=== PATIENT | male | born 1945 | race Caucasian/White ===

== ENCOUNTER 2020-08-07 09:00 | Observation (INO) | payer MEDICARE ==
[2020-08-07] VITALS (8 sets, daily range): BP systolic 123–154; BP diastolic 52–66
[~2020-08-07] VITALS: Ht 190.5 cm; Wt 107.8 kg
--- NOTE | 2020-08-07 10:13 | RAD ---
Examination: 3 views of the right knee HISTORY: History of right knee pain, fall COMPARISON: None available Findings/ impression: The alignment of the knee joint grossly appears unremarkable. Small knee joint effusion. There is a 2 cm calcific density identified in the suprapatellar knee joint probably loose body. Faint questionab le hypodensity identified in the distal diaphysis of the femur. Consider follow-up CT or MRI for furt her evaluation. Electronically signed by: Tyree Barnett MD (08/07/2020 10:11 AM) [id number]
--- NOTE | 2020-08-07 11:21 | RAD ---
INDICATION: Reason: knee injury s/p fall today / Spl. Instructions: / History: . COMPARISON: Plain film from earlier same day TECHNIQUE: Axial CT images obtained through the right knee. One or more of the following individualized dose reduction techniques were utilized for this examinat ion: 1. Automated exposure control; 2. Adjustment of the mA and/or kV according to patient size; 3 . Use of iterative reconstruction technique. FINDINGS: Superior to the patella there are multiple ossific fragments identified. There is also some apparent erosions at the patella. Patchy osseous demineralization. Degenerative changes of the knee with osteophyte formation. There is mild indentation of the lateral femoral condyle anteriorly with mild subchondral lucency. No evidence of dislocation. Small joint effusion. Prepatellar soft tissue swelling. There are some laxity of the patellar tendon and quadriceps tendon. There is some relative lucency within the cortex of the distal femur with a nonspecific appearance. T here is a similar appearance at the tibia and fibula. Edema to the soft tissues adjacent to the knee with some of this appearing high density which could be secondary to component with blood within. The re is also some high density at the patient's joint effusion. IMPRESSION: * No evidence of dislocation. * There is a indentation identified at the lateral femoral condyle with subchondral lucency. Would c orrelate with point tenderness at this site since this could be from a small impaction fracture of un known age. There is adjacent edema and high density material in the subcutaneous soft tissues which c ould be secondary to a small amount of subcutaneous blood near this site. Patient also has a small amanda int effusion with a portion appearing high density which can be seen with a small hemorrhagic compone nt. * There is some ossific fragment seen superior to the patella which may be from loose bodies. Anothe r possible cause would include fragments from prior avulsion injury at the patellar tendon. * Laxity of the patellar and quadriceps tendons. Limited assessment of the tendons on CT and would c orrelate with function of the patellar and quadriceps tendon to ensure that this is physiologic rathe r than from injury. * Degenerative changes. Electronically signed by: Eric Sage MD (08/07/2020 11:19 AM) [id number]
--- NOTE | 2020-08-07 12:03 | ED.ADGEN ---
Past Medical History Past Medical History: Hypertension, Other Additional Past Medical Histor: PREDM Past Surgical History: Other Additional Past Surgical Histo: HERNIA REPAIRX2, LUMBAR SX Smoking Status: Never Smoker Alcohol Use: Rarely General Adult EDM: Chief Complaint: MECHANICAL FALL HPI: HPI: Patient is a 74 year old male coming in for right knee pain after a fall prior to arrival. Patient states he was walking his dogs when he tripped and says his knee twisted. Is a small abrasion to his right hand but denies any other injuries. Last tetanus greater than 10 years ago denies any blood thinner use. Otherwise has been well Review of Systems: Review of Systems: All other systems within normal limits except for as noted in the HPI Current Medications: Current Medications Medications (Trade) Dose Ordered Sig/Dave Start Time Stop Time Status Last Admin Dose Admin Diphtheria/ Tetanus/Acell Pertussis (ADACEL TDap SYRINGE) 0.5 ml ONCE ONCE 08/07/20 12:15 08/07/20 12:16 DC 08/07/20 12:18 0.5 ML Fentanyl Citrate (Fentanyl 2ml Vial) 50 mcg PRN Q5MIN PRN 08/07/20 13:30 08/08/20 13:29 Hydromorphone HCl (Dilaudid) 0.5 mg PRN Q10MIN PRN 08/07/20 13:30 08/08/20 13:29 Lidocaine HCl (Lidocaine Pf 2% Vial) 5 ml STK-MED ONCE 08/07/20 13:16 08/07/20 13:16 DC Morphine Sulfate (Morphine Sulfate) 1 mg PRN Q10MIN PRN 08/07/20 13:30 08/08/20 13:29 Ondansetron HCl (Zofran) 4 mg PRN Q8HRS PRN 08/07/20 12:45 08/08/20 12:44 Prochlorperazine Edisylate (Compazine) 5 mg PACU PRN PRN 08/07/20 13:30 08/08/20 13:29 Propofol (Diprivan) 200 mg STK-MED ONCE 08/07/20 13:16 08/07/20 13:16 DC Ringer's Solution 1,000 ml @ 30 mls/hr Q24H 08/07/20 13:30 08/08/20 01:29 Sodium Chloride 1,000 ml @ 75 mls/hr [id number] 08/07/20 12:45 08/08/20 12:44 Allergies: Allergies: Allergies Coded Allergies Type Severity Reaction Last Updated Verified No Known Drug Allergies 08/07/20 No Physical Exam: PE: Constitutional: Well developed, well nourished, no acute distress, non-toxic appearance. [] HENT: Normocephalic, atraumatic, bilateral external ears normal, nose normal. [] Eyes: PERRLA, conjunctiva normal, no discharge. [] Neck: No rigidity, supple, no stridor. [] Cardiovascular: Regular rate and rhythm, brisk cap refill [] Lungs & Thorax: Non labored symmetric respirations, no tachypnea or respiratory distress [] Abdomen: Soft, nondistended. Skin: Warm, dry, no erythema, no rash. [] Back: Unremarkable Extremities: No deformities, range of motion grossly intact, no lower extremity edema [] right knee, patella displaced inferiorly, moderate joint effusion Neurologic: Alert and oriented X 3, no focal deficits noted. [] Psychologic: Affect normal, judgement normal, mood normal. [] Current Patient Data: Labs: Laboratory Tests Test 08/07/20 12:39 White Blood Count 8.9 x10^3/uL (4.0-11.0) Red Blood Count 4.59 x10^6/uL (4.30-5.70) Hemoglobin 14.4 g/dL (13.0-17.5) Hematocrit 42.1 % (39.0-53.0) Mean Corpuscular Volume 92 fL (79-100) Mean Corpuscular Hemoglobin 31 pg (25-35) Mean Corpuscular Hemoglobin Concent 34 g/dL (31-37) Red Cell Distribution Width 13.2 % (11.5-14.5) Platelet Count 166 x10^3/uL (140-400) Neutrophils (%) (Auto) 80 % (31-73) H Lymphocytes (%) (Auto) 14 % (24-48) L Monocytes (%) (Auto) 6 % (0-9) Eosinophils (%) (Auto) 0 % (0-3) Basophils (%) (Auto) 0 % (0-3) Neutrophils # (Auto) 7.2 x10^3/uL (1.8-7.7) Lymphocytes # (Auto) 1.2 x10^3/uL (1.0-4.8) Monocytes # (Auto) 0.5 x10^3/uL (0.0-1.1) Eosinophils # (Auto) 0.0 x10^3/uL (0.0-0.7) Basophils # (Auto) 0.0 x10^3/uL (0.0-0.2) Sodium Level 140 mmol/L (136-145) Potassium Level 4.3 mmol/L (3.5-5.1) Chloride Level 104 mmol/L (98-107) Carbon Dioxide Level 26 mmol/L (21-32) Anion Gap 10 (6-14) Blood Urea Nitrogen 22 mg/dL (8-26) Creatinine 0.9 mg/dL (0.7-1.3) Estimated GFR (Cockcroft-Gault) 82.0 BUN/Creatinine Ratio 24 (6-20) H Glucose Level 157 mg/dL (70-99) H Calcium Level 8.5 mg/dL (8.5-10.1) Total Bilirubin 0.6 mg/dL (0.2-1.0) Aspartate Amino Transferase (AST) 18 U/L (15-37) Alanine Aminotransferase (ALT) 36 U/L (16-63) Alkaline Phosphatase 61 U/L (46-116) Total Protein 6.9 g/dL (6.4-8.2) Albumin 3.9 g/dL (3.4-5.0) Albumin/Globulin Ratio 1.3 (1.0-1.7) SARS-CoV-2 Antigen (Rapid) Negative (NEGATIVE) Laboratory Tests 08/07/20 12:39 Laboratory Tests 08/07/20 12:39 Vital Signs: Vital Signs Date Time Temp Pulse Resp B/P (MAP) Pulse Ox O2 Delivery O2 Flow Rate FiO2 08/07/20 09:39 97.2 66 18 147/75 (99) 94 Room Air 97.2 EKG: EKG: [Normal sinus rhythm, heart rate 60 bpm, normal axis, no ST elevation or depression, no ectopy] Heart Score: Risk Factors: Risk Factors: DM, Current or recent (<one month) smoker, HTN, HLP, family history of CAD, obesity. Risk Scores: Score 0 - 3: 2.5% MACE over next 6 weeks - Discharge Home Score 4 - 6: 20.3% MACE over next 6 weeks - Admit for Clinical Observation Score 7 - 10: 72.7% MACE over next 6 weeks - Early Invasive Strategies Radiology/Procedures: Radiology/Procedures: INDICATION: Reason: knee injury s/p fall today / Spl. Instructions: / History: . COMPARISON: Plain film from earlier same day TECHNIQUE: Axial CT images obtained through the right knee. One or more of the following individualized dose reduction techniques were utilized for this examination: 1. Automated exposure control; 2. Adjustment of the mA and/or kV according to patient size; 3. Use of iterative reconstruction technique. FINDINGS: Superior to the patella there are multiple ossific fragments identified. There is also some apparent erosions at the patella. Patchy osseous demineralization. Degenerative changes of the knee with osteophyte formation. There is mild indentation of the lateral femoral condyle anteriorly with mild subchondral lucency. No evidence of dislocation. Small joint effusion. Prepatellar soft tissue swelling. There are some laxity of the patellar tendon and quadriceps tendon. There is some relative lucency within the cortex of the distal femur with a nonspecific appearance. There is a similar appearance at the tibia and fibula. Edema to the soft tissues adjacent to the knee with some of this appearing high density which could be secondary to component with blood within. There is also some high density at the patient's joint effusion. IMPRESSION: * No evidence of dislocation. * There is a indentation identified at the lateral femoral condyle with subchon dral lucency. Would correlate with point tenderness at this site since this could be from a small impaction fracture of unknown age. There is adjacent edema and high density material in the subcutaneous soft tissues which could be secondary to a small amount of subcutaneous blood near this site. Patient also has a small joint effusion with a portion appearing high density which can be seen with a small hemorrhagic component. * There is some ossific fragment seen superior to the patella which may be from loose bodies. Another possible cause would include fragments from prior avulsion injury at the patellar tendon. * Laxity of the patellar and quadriceps tendons. Limited assessment of the tendons on CT and would correlate with function of the patellar and quadriceps tendon to ensure that this is physiologic rather than from injury. * Degenerative changes. Examination: 3 views of the right knee HISTORY: History of right knee pain, fall COMPARISON: None available Findings/ impression: The alignment of the knee joint grossly appears unremarkable. Small knee joint effusion. There is a 2 cm calcific density identified in the suprapatellar knee joint probably loose body. Faint questionable hypodensity identified in the distal diaphysis of the femur. Consider follow-up CT or MRI for further evaluation. [] Course & Med Decision Making: Course & Med Decision Making Discussed with Dr. Carpio can either have a knee immobilizer and follow-up in clinic or contact the OR today for surgical repair. Patient agreed to or today, admitted to hospitalist, stat Covid ordered for preop clearance. Tetanus updated [] Dragon Disclaimer: Dragon Disclaimer: This electronic medical record was generated, in whole or in part, using a voice recognition dictation system. Departure Departure Impression: Primary Impression: Fall Additional Impressions: Abrasion of right hand Rupture of right quadriceps tendon Disposition: 09 ADMITTED INPT THIS HOSP Admitting Physician: HUGH Condition: STABLE Referrals: SAIGE SEPULVEDA MD (PCP) Problem Qualifiers RADHA PRYOR MD Aug 07, 2020 12:03
[2020-08-07] MEDS ORDERED: DIPH,PERTUSS(ACELL),TET VAC/PF 0.5 ML SYRINGE. VAX IM ONE (12:15)
[2020-08-07] MEDS ORDERED: MORPHINE SULFATE 4 MG/ML VIAL. IV PRN (12:45)
[2020-08-07] MEDS: IV NORMAL SALINE 1000ML BAG 1,000 ML IV SCH ×2 (12:45→19:47)
[2020-08-07] MEDS ORDERED: ONDANSETRON PF 4 MG/2 ML VIAL. IV PRN (12:45)
[2020-08-07 12:56] LABS: BASO % 0 % (0-3); EOS % 0 % (0-3); HEMATOCRIT 42.1 % (39.0-53.0); HEMOGLOBIN 14.4 g/dL (13.0-17.5); LYMPH # 1.2 x10^3/uL (1.0-4.8); LYMPH % 14 % (24-48); MEAN CORPUSCULAR HEMOGLOBIN 31 pg (25-35); MEAN CORPUSCULAR HGB CONC 34 g/dL (31-37); MEAN CORPUSCULAR VOLUME 92 fL (79-100); MONO # 0.5 x10^3/uL (0.0-1.1); MONO % 6 % (0-9); NEUT # 7.2 x10^3/uL (1.8-7.7); NEUT % 80 % (31-73); PLATELET COUNT 166 x10^3/uL (140-400); RED BLOOD COUNT 4.59 x10^6/uL (4.30-5.70); RED CELL DISTRIBUTION WIDTH 13.2 % (11.5-14.5); WHITE BLOOD COUNT 8.9 x10^3/uL (4.0-11.0)
[2020-08-07 13:07] LABS: CALCIUM 8.5 mg/dL (8.5-10.1); CREATININE 0.9 mg/dL (0.7-1.3); POTASSIUM 4.3 mmol/L (3.5-5.1)
[2020-08-07 13:13] LABS: ALBUMIN 3.9 g/dL (3.4-5.0); ALBUMIN/GLOBULIN RATIO 1.3 (1.0-1.7); TOTAL BILIRUBIN 0.6 mg/dL (0.2-1.0); TOTAL PROTEIN 6.9 g/dL (6.4-8.2)
[2020-08-07] MEDS ORDERED: LIDOCAINE 2% PF 5 ML VIAL. ONE (13:16)
[2020-08-07] MEDS ORDERED: PROPOFOL 10 MG/ML (20ML) VIAL. IV ONE (13:16)
[2020-08-07] MEDS ORDERED: fentaNYL PF VIAL 100 MCG/2 ML VIAL ONE ×2 (13:16→15:59)
[2020-08-07] MEDS ORDERED: IV RINGERS,LACTATED 1000ML 1,000 ML IV SCH (13:30)
[2020-08-07] MEDS ORDERED: PROCHLORPERAZINE 10 MG/2 ML VIAL. IVP PRN (13:30)
[2020-08-07] MEDS ORDERED: fentaNYL PF VIAL 100 MCG/2 ML VIAL IVP PRN ×2 (13:30)
[2020-08-07] MEDS ORDERED: DEXAMETHASONE SOD PHOS 4 MG/ML VIAL ONE (14:51)
[2020-08-07] MEDS ORDERED: ONDANSETRON PF 4 MG/2 ML VIAL. ONE (14:51)
[2020-08-07] MEDS ORDERED: ceFAZolin SODIUM IV Push 1 GM VIAL. IVP ONE (15:15)
[2020-08-07] MEDS ORDERED: SEVOFLURANE 61 TO 120 MINUTES. IH ONE (15:16)
[2020-08-07] MEDS: fentaNYL PF VIAL 100 MCG/2 ML VIAL IV PRN ×2 (16:01→16:06)
[2020-08-07] MEDS ORDERED: MORPHINE SULFATE 2 MG/ML VIAL. ONE (16:07)
[2020-08-07] MEDS: MORPHINE SULFATE 2 MG/ML VIAL. IVP PRN ×2 (16:09→16:19)
--- NOTE | 2020-08-07 16:23 | PDOC4 ---
Operative Note Operative Note Date of surgery: 08/07/2020 Preoperative diagnosis: Right quadriceps tendon rupture Postoperative diagnosis: Same Operative procedure: Right quadriceps tendon repair Surgeon: Shirin Assist:Claudio dozier Anesthesia: General Estimated blood loss: 50 cc, mostly hematoma Complications: None Operative indications: Please see my dictated orthopedic emergency department consultation for detailed operative indications Operative text: Patient was identified procedure verified patient placed in the supine position on the operating table. After adequate amounts of general anesthesia were administered the right lower extremity was prepped and draped in standard sterile fashion with a thigh tourniquet. After timeout was performed patient procedure identified and verified the right lower extremity was exsanguinated by Esmarch bandage tourniquet inflated to 250 mmHg a midline incision was made and the quadriceps rupture diagnosis was confirmed superior pole of the patella was debrided back to bleeding bony tissue to allow satisfactory repair and the quadriceps tendon was trimmed back to stable healthy tissue. A total of 3 max braid sutures and all were whipstitched into the quadriceps distally using grasping suture and sutures were placed through a total of 3 longitudinal drill holes in the patella and the quadriceps was reapposed by tying the sutures distally as they were fished underneath the tendon and tied over bone to avoid any tissue compromise. Excellent apposition was noted of the quadriceps tendon to the superior pole of patella reinforcing #1 Vicryl sutures were then placed to reapposed the superficial tissue and retinaculum. Thorough irrigation carried out normal saline solution subcutaneous closure with buried Vicryl sutures skin closure with cherise sterile soft dressings were applied followed by a hinged knee brace locked in extension. Toes were noted to be warm pink following deflation of tourniquet patient was returned to recovery room in stable condition having tolerated procedure well BECKY SHELL MD Aug 07, 2020 16:23
[2020-08-07] MEDS ORDERED: HYDROmorphone 2 MG/ML VIAL ONE (16:32)
[2020-08-07] MEDS: HYDROmorphone 2 MG/ML VIAL IVP PRN ×4 (16:34→17:05)
[2020-08-07] MEDS ORDERED: hydrALAZINE 20 MG/ML VIAL. IVP ONE (16:45)
[2020-08-07] MEDS ORDERED: GLUC-11 PO (17:51)
[2020-08-07] MEDS ORDERED: LISI-130 PO (17:51)
[2020-08-07] MEDS ORDERED: SULF15DR5 EACHEYE (17:51)
[2020-08-07] MEDS ORDERED: METF500T16 PO (17:51)
[2020-08-07] MEDS ORDERED: FAMO20TA5 PO (17:51)
[2020-08-07] MEDS ORDERED: ATOR10TA60 PO (17:51)
[2020-08-07] MEDS ORDERED: ASPI-630 PO (17:51)
--- NOTE | 2020-08-07 19:25 | CONS ---
DATE OF CONSULTATION: 08/07/2020 REQUESTING PHYSICIAN: Angie Paris MD REASON FOR CONSULTATION: Right knee injury. HISTORY OF PRESENT ILLNESS: The patient is a 74-year-old male, otherwise healthy and independently ambulatory, who was walking his dogs and he tripped and twisted his knee while falling. He had immediate onset of deformity above his kneecap and fell on his right hand, but really has no pain with that aside from just abrasion. PAST MEDICAL HISTORY: Significant for hypertension. PAST SURGICAL HISTORY: Two hernia repairs and lumbar surgery. SOCIAL HISTORY: , accompanied by his . Denies smoking or drug use. Occasional alcohol use. ALLERGIES: He has no known drug allergies. MEDICATIONS: List is reviewed. REVIEW OF SYSTEMS: Denies any loss of consciousness. No head injury, visual changes, headache, focal weakness, numbness or tingling. No chest pain, shortness of breath, recent febrile illness, otherwise negative review of systems. PHYSICAL EXAMINATION: He has an obvious defect at the quadriceps tendon insertion and is unable to extend his right knee. Ligaments are otherwise stable. Skin is overlying intact. He has normal examination of the contralateral left knee, bilateral hips and ankles with intact motor function, distal pulses, sensation, reflexes, skin in both lower extremities throughout. IMAGING: X-rays show some mild degenerative changes at the knee and some calcification in the distal quadriceps insertion area and obvious disruption of the quadriceps at the superior pole of the patella. IMPRESSION: Quadriceps tendon rupture. TREATMENT PLAN: I had gone over with him the typical operative repair for this injury as the quadriceps is and unlikely to heal satisfactorily with nonoperative treatment as his extensors is compromised. I had gone over with him the general recovery process and the rationale for protection, the possibility of infection, nonhealing, nerve or blood vessel damage, medical or other anesthetic complications among others. All his questions were answered. He wishes to proceed with surgical evaluation and treatment, which will occur today as he has been n.p.o. since approximately 5 a.m. BECKY SHELL MD DR: BARBARA/thomas JOB#: [id number] / [id number]
--- NOTE | 2020-08-07 19:39 | EKG ---
[facility] [address] [place] [address] Test Date: 2020-08-07 Test Time: 13:35:03 Pat Name: LIONEL IBARRA Department: Room: Gender: Machine Sprayer: : [id number] Requested By: RADHA PRYOR Order Number: [id number] Reading MD: Measurements Intervals [place] Rate: 62 P: VT: QRS: 44 QRSD: 92 T: 27 QT: 402 QTc: 410 Interpretive Statements ATRIAL FLUTTER ABNORMAL ECG RI6.02 No previous ECG available for comparison
--- NOTE | 2020-08-07 20:54 | PDOC1 ---
History and Physical Date of Admission Date of Admission DATE: 08/07/20 TIME: 20:49 Source Source: Chart review, Patient History of Present Illness History of Present Illness Mr. Josue, is a 74 year old male admit for acute pain to his right knee after a fall. He was walkign his dogs in the neighborhood and slipped on the ice. He has slipped before, but this time, he twisted and had sudden, severe pain. He is retired and [place] on [address] [place] . His partner for the past 39 years is Jennifer Queen MD. Past Medical History Cardiovascular: HTN, Hyperlipidemia Pulmonary: No pertinent hx GI: No pertinent hx Musculoskeletal: low back pain Rheumatologic: No pertinent hx Infectious disease: No pertinent hx Endocrine: Diabetes Family History Family History: No Significant Social History Smoke: No ALCOHOL: occassional Current Problem List Problem List Problems Medical Problems: (1) Abrasion of right hand Status: Acute (2) Fall Status: Acute (3) Rupture of right quadriceps tendon Status: Acute Current Medications Current Medications Current Medications Diphtheria/ Tetanus/Acell Pertussis (ADACEL TDap SYRINGE) 0.5 ml ONCE ONCE VAX IM Last administered on 08/07/20at 12:18; Start 08/07/20 at 12:15; Stop 08/07/20 at 12:16; Status DC Ondansetron HCl (Zofran) 4 mg PRN Q8HRS PRN IV NAUSEA/VOMITING; Start 08/07/20 at 12:45; Stop 08/08/20 at 12:44 Morphine Sulfate (Morphine Sulfate) 4 mg PRN Q2HR PRN IV PAIN; Start 08/07/20 at 12:45; Stop 08/08/20 at 12:44 Fentanyl Citrate (Fentanyl 2ml Vial) 50 mcg PRN Q1HR PRN IV PAIN Last adminis tered on 08/07/20at 16:06; Start 08/07/20 at 12:45; Stop 08/08/20 at 12:44 Sodium Chloride 1,000 ml @ 75 mls/hr [id number] IV Last administered on 08/07/20at 19:47; Start 08/07/20 at 12:45; Stop 08/08/20 at 12:44 Propofol (Diprivan) 200 mg STK-MED ONCE IV ; Start 08/07/20 at 13:16; Stop 08/07/20 at 13:16; Status DC Lidocaine HCl (Lidocaine Pf 2% Vial) 5 ml STK-MED ONCE .ROUTE ; Start 08/07/20 at 13:16; Stop 08/07/20 at 13:16; Status DC Fentanyl Citrate (Fentanyl 2ml Vial) 100 mcg STK-MED ONCE .ROUTE ; Start 08/07/20 at 13:16; Stop 08/07/20 at 13:16; Status DC Fentanyl Citrate (Fentanyl 2ml Vial) 25 mcg PRN Q5MIN PRN IVP MILD PAIN 1-3; Start 08/07/20 at 13:30; Stop 08/08/20 at 13:29 Fentanyl Citrate (Fentanyl 2ml Vial) 50 mcg PRN Q5MIN PRN IVP MODERATE PAIN 4- 6; Start 08/07/20 at 13:30; Stop 08/08/20 at 13:29 Morphine Sulfate (Morphine Sulfate) 1 mg PRN Q10MIN PRN IVP SEVERE PAIN 7-10 Last administered on 08/07/20at 16:19; Start 08/07/20 at 13:30; Stop 08/08/20 at 13:29 Ringer's Solution 1,000 ml @ 30 mls/hr Q24H IV ; Start 08/07/20 at 13:30; Stop 08/08/20 at 01:29 Hydromorphone HCl (Dilaudid) 0.5 mg PRN Q10MIN PRN IVP SEVERE PAIN 7-10, 2nd CHOICE Last administered on 08/07/20at 17:05; Start 08/07/20 at 13:30; Stop 08/08/20 at 13:29 Prochlorperazine Edisylate (Compazine) 5 mg PACU PRN PRN IVP NAUSEA, MRX1; Start 08/07/20 at 13:30; Stop 08/08/20 at 13:29 Dexamethasone Sodium Phosphate (Decadron) 4 mg STK-MED ONCE .ROUTE ; Start 08/07/20 at 14:51; Stop 08/07/20 at 14:51; Status DC Ondansetron HCl (Zofran) 4 mg STK-MED ONCE .ROUTE ; Start 08/07/20 at 14:51; Stop 08/07/20 at 14:51; Status DC Cefazolin Sodium (Ancef) 1 gm STK-MED ONCE IVP ; Start 08/07/20 at 15:15; Stop 08/07/20 at 15:15; Status DC Sevoflurane (Ultane) 60 ml STK-MED ONCE IH ; Start 08/07/20 at 15:16; Stop 08/07/20 at 15:16; Status DC Fentanyl Citrate (Fentanyl 2ml Vial) 100 mcg STK-MED ONCE .ROUTE ; Start 08/07/20 at 15:59; Stop 08/07/20 at 16:00; Status DC Morphine Sulfate (Morphine Sulfate) 2 mg STK-MED ONCE .ROUTE ; Start 08/07/20 at 16:07; Stop 08/07/20 at 16:08; Status DC Hydromorphone HCl (Dilaudid) 2 mg STK-MED ONCE .ROUTE ; Start 08/07/20 at 16:32; Stop 08/07/20 at 16:32; Status DC Hydralazine HCl (Apresoline Inj) 10 mg 1X ONCE IVP Last administered on 08/07/20at 16:39; Start 08/07/20 at 16:45; Stop 08/07/20 at 16:46; Status DC Aspirin (Aspirin Chewable) 81 mg DAILY PO ; Start 08/08/20 at 09:00 Atorvastatin Calcium (Lipitor) 10 mg QHS PO ; Start 08/07/20 at 21:00 Famotidine (Pepcid) 20 mg DAILY PO ; Start 08/08/20 at 09:00 Lisinopril (Prinivil) 40 mg DAILY PO ; Start 08/08/20 at 09:00 Metformin HCl (Glucophage) 500 mg DAILYWBKFT PO ; Start 08/08/20 at 08:00 Sulfacetamide Sodium (Sulf-10) 1 drop DAILY OU ; Start 08/08/20 at 09:00 Enoxaparin Sodium (Lovenox Per Pharmacy Prophylaxis Dosing) 1 each PRN DAILY PRN MC SEE COMMENTS; Start 08/07/20 at 20:00 Enoxaparin Sodium (Lovenox 40mg Syringe) 40 mg Q24H SQ ; Start 08/07/20 at 21:00 Active Scripts Active Reported Famotidine 20 Mg Tablet 20 Mg PO DAILY Cidaflex Tablet (Glucosamine Hcl/Chondr Moon A Na) 1 Each Tablet 1 Tab PO DAILY 30 Days Lisinopril 40 Mg Tablet 1 Tab PO DAILY Metformin Hcl 500 Mg Tablet 500 Mg PO DAILY Sulfacetamide Sodium 15 Ml Drops 1 Drop EACHEYE DAILY 7 Days Aspirin 81 Mg Tab.chew 1 Tab PO DAILY Atorvastatin Calcium 10 Mg Tablet 1 Tab PO DAILY Allergies Allergies: Coded Allergies: No Known Drug Allergies (Unverified , 08/07/20) ROS General: No: Chills, Night Sweats, Fatigue, Malaise, Appetite, Other PSYCHOLOGICAL ROS: No: Anxiety, Behavioral Disorder, Concentration difficultie, Decreased libido, Depression, Disorientation, Hallucinations, Hostility, Irritablity, Memory difficulties, Mood Swings, Obsessive thoughts, Physical abuse, Sexual abuse, Sleep disturbances, Suicidal ideation, Other Eyes: No Blurry vision, No Decreased vision, No Double vision, No Dry eyes, No Excessive tearing, No Eye Pain, No Itchy Eyes, No Loss of vision, No Photophobia, No Scotomata, No Uses contacts, No Uses glasses, No Other HEENT: No: Heacaches, Visual Changes, Hearing change, Nasal congestion, Nasal discharge, Oral lesions, Sinus pain, Sore Throat, Epistaxis, Sneezing, Snoring, Tinnitus, Vertigo, Vocal changes, Other Respiratory: No: Cough, Hemoptysis, Orthopnea, Pleuritic Pain, Shortness of breath, SOB with excertion, Sputum Changes, Stridor, Tachypnea, Wheezing, Other Cardiovascular: No Chest Pain, No Palpitations, No Orthopnea, No Paroxysmal Noc. Dyspnea, No Edema, No Lt Headedness, No Other Gastrointestinal: No Nausea, No Vomiting, No Abdominal Pain, No Diarrhea, No Constipation, No Melena, No Hematochezia, No Other Genitourinary: No Dysuria, No Frequency, No Incontinence, No Hematuria, No Retention, No Discharge, No Urgency, No Pain, No Flank Pain, No Other, No , No , No , No , No , No , No Musculoskeletal: Yes Joint Pain (today only), Yes Joint Stiffness Neurological: No Behavorial Changes, No Bowel/Bladder ControlChng, No Confusion, No Dizziness, No Headaches, No Impaired Coord/balance, No Memory Loss, No Numbness/Tingling, No Seizures, No Speech Problems, No Tremors, No Visual Changes, No Weakness, No Other Skin: No Eczema, No Hair Changes, No Lumps, No Mole Changes, No Mottling, No Nail Changes, No Pruritus, No Rash, No Skin Lesion Changes, No Other, No Acne Physical Exam General: Alert, Oriented X3, Cooperative, mild distress (pain 4/10) Extremities: No cyanosis, No edema Skin: No rashes, No significant lesion Neuro: Normal tone, Sensation intact Psych/Mental Status: Mental status NL, Mood NL Vitals Vitals Vital Signs Date Time Temp Pulse Resp B/P (MAP) Pulse Ox O2 Delivery O2 Flow Rate FiO2 08/07/20 19:00 70 16 143/66 (91) 99 Room Air 08/07/20 17:41 2.0 08/07/20 17:15 98.3 98.3 Labs Labs Laboratory Tests Test 08/07/20 12:39 White Blood Count 8.9 x10^3/uL (4.0-11.0) Red Blood Count 4.59 x10^6/uL (4.30-5.70) Hemoglobin 14.4 g/dL (13.0-17.5) Hematocrit 42.1 % (39.0-53.0) Mean Corpuscular Volume 92 fL (79-100) Mean Corpuscular Hemoglobin 31 pg (25-35) Mean Corpuscular Hemoglobin Concent 34 g/dL (31-37) Red Cell Distribution Width 13.2 % (11.5-14.5) Platelet Count 166 x10^3/uL (140-400) Neutrophils (%) (Auto) 80 % (31-73) Lymphocytes (%) (Auto) 14 % (24-48) Monocytes (%) (Auto) 6 % (0-9) Eosinophils (%) (Auto) 0 % (0-3) Basophils (%) (Auto) 0 % (0-3) Neutrophils # (Auto) 7.2 x10^3/uL (1.8-7.7) Lymphocytes # (Auto) 1.2 x10^3/uL (1.0-4.8) Monocytes # (Auto) 0.5 x10^3/uL (0.0-1.1) Eosinophils # (Auto) 0.0 x10^3/uL (0.0-0.7) Basophils # (Auto) 0.0 x10^3/uL (0.0-0.2) Sodium Level 140 mmol/L (136-145) Potassium Level 4.3 mmol/L (3.5-5.1) Chloride Level 104 mmol/L (98-107) Carbon Dioxide Level 26 mmol/L (21-32) Anion Gap 10 (6-14) Blood Urea Nitrogen 22 mg/dL (8-26) Creatinine 0.9 mg/dL (0.7-1.3) Estimated GFR (Cockcroft-Gault) 82.0 BUN/Creatinine Ratio 24 (6-20) Glucose Level 157 mg/dL (70-99) Calcium Level 8.5 mg/dL (8.5-10.1) Total Bilirubin 0.6 mg/dL (0.2-1.0) Aspartate Amino Transf (AST/SGOT) 18 U/L (15-37) Alanine Aminotransferase (ALT/SGPT) 36 U/L (16-63) Alkaline Phosphatase 61 U/L (46-116) Total Protein 6.9 g/dL (6.4-8.2) Albumin 3.9 g/dL (3.4-5.0) Albumin/Globulin Ratio 1.3 (1.0-1.7) SARS-CoV-2 Antigen (Rapid) Negative (NEGATIVE) Laboratory Tests Test 08/07/20 12:39 White Blood Count 8.9 x10^3/uL (4.0-11.0) Red Blood Count 4.59 x10^6/uL (4.30-5.70) Hemoglobin 14.4 g/dL (13.0-17.5) Hematocrit 42.1 % (39.0-53.0) Mean Corpuscular Volume 92 fL (79-100) Mean Corpuscular Hemoglobin 31 pg (25-35) Mean Corpuscular Hemoglobin Concent 34 g/dL (31-37) Red Cell Distribution Width 13.2 % (11.5-14.5) Platelet Count 166 x10^3/uL (140-400) Neutrophils (%) (Auto) 80 % (31-73) Lymphocytes (%) (Auto) 14 % (24-48) Monocytes (%) (Auto) 6 % (0-9) Eosinophils (%) (Auto) 0 % (0-3) Basophils (%) (Auto) 0 % (0-3) Neutrophils # (Auto) 7.2 x10^3/uL (1.8-7.7) Lymphocytes # (Auto) 1.2 x10^3/uL (1.0-4.8) Monocytes # (Auto) 0.5 x10^3/uL (0.0-1.1) Eosinophils # (Auto) 0.0 x10^3/uL (0.0-0.7) Basophils # (Auto) 0.0 x10^3/uL (0.0-0.2) Sodium Level 140 mmol/L (136-145) Potassium Level 4.3 mmol/L (3.5-5.1) Chloride Level 104 mmol/L (98-107) Carbon Dioxide Level 26 mmol/L (21-32) Anion Gap 10 (6-14) Blood Urea Nitrogen 22 mg/dL (8-26) Creatinine 0.9 mg/dL (0.7-1.3) Estimated GFR (Cockcroft-Gault) 82.0 BUN/Creatinine Ratio 24 (6-20) Glucose Level 157 mg/dL (70-99) Calcium Level 8.5 mg/dL (8.5-10.1) Total Bilirubin 0.6 mg/dL (0.2-1.0) Aspartate Amino Transf (AST/SGOT) 18 U/L (15-37) Alanine Aminotransferase (ALT/SGPT) 36 U/L (16-63) Alkaline Phosphatase 61 U/L (46-116) Total Protein 6.9 g/dL (6.4-8.2) Albumin 3.9 g/dL (3.4-5.0) Albumin/Globulin Ratio 1.3 (1.0-1.7) SARS-CoV-2 Antigen (Rapid) Negative (NEGATIVE) VTE Prophylaxis Ordered VTE Prophylaxis Devices: No VTE Pharmacological Prophylaxi: Yes Assessment/Plan Assessment/Plan fall, acute knee injury, rupture of his quadriceps tendon, to the OR, did well, Dr. Carpio, he is post -op wtih some pain. PMH Dm2, hyperlipids, htn, admit, PT and OT, dc if he can manage on a walker Justifications for Admission Other Justification KAL HORTON MD Aug 07, 2020 20:54
[2020-08-07] MEDS ORDERED: ATORVASTATIN CALCIUM 10 MG TABLET. PO SCH (21:00)
[2020-08-07] MEDS ORDERED: ENOXAPARIN 40 MG/0.4 ML SYRINGE. SQ SCH (21:00)
[2020-08-07] MEDS: oxyCODONE/APAP 5/325 1 TAB TABLET PO PRN (21:27)
[2020-08-08] MEDS: oxyCODONE/APAP 5/325 1 TAB TABLET PO PRN ×4 (02:51→13:21)
[2020-08-08 03:00] VITALS: BP 127/71
[2020-08-08 07:00] VITALS: BP 147/60
[2020-08-08] MEDS ORDERED: metFORMIN 500 MG TABLET PO SCH (08:00)
[2020-08-08 08:04] LABS: CALCIUM 8.1 mg/dL (8.5-10.1); CREATININE 0.9 mg/dL (0.7-1.3); POTASSIUM 4.1 mmol/L (3.5-5.1)
[2020-08-08 08:22] LABS: BASO % 0 % (0-3); EOS % 0 % (0-3); HEMATOCRIT 41.1 % (39.0-53.0); HEMOGLOBIN 13.9 g/dL (13.0-17.5); LYMPH % 9 % (24-48); MEAN CORPUSCULAR HEMOGLOBIN 31 pg (25-35); MEAN CORPUSCULAR HGB CONC 34 g/dL (31-37); MEAN CORPUSCULAR VOLUME 93 fL (79-100); MONO # 0.8 x10^3/uL (0.0-1.1); MONO % 7 % (0-9); NEUT % 83 % (31-73); PLATELET COUNT 169 x10^3/uL (140-400); RED BLOOD COUNT 4.43 x10^6/uL (4.30-5.70); RED CELL DISTRIBUTION WIDTH 13.4 % (11.5-14.5); WHITE BLOOD COUNT 10.8 x10^3/uL (4.0-11.0)
[2020-08-08] MEDS ORDERED: SULFACETAMIDE 10% OPHTH SOLUTION 15ML BOTTLE. OU SCH (09:00)
[2020-08-08] MEDS ORDERED: ASPIRIN CHEWABLE 81 MG TABLET. PO SCH (09:00)
[2020-08-08] MEDS ORDERED: ENOXAPARIN 40 MG/0.4 ML SYRINGE. SQ SCH (09:00)
[2020-08-08] MEDS ORDERED: DOCUSATE SODIUM 100 MG CAPSULE. PO SCH (09:00)
[2020-08-08] MEDS ORDERED: LISINOPRIL 20 MG TABLET PO SCH (09:00)
[2020-08-08] MEDS ORDERED: FAMOTIDINE 20 MG TABLET. PO SCH (09:00)
[2020-08-08 11:00] VITALS: BP 98/43
--- NOTE | 2020-08-08 11:59 | DISCH ---
DISCHARGE INSTRUCTIONS Condition on Discharge Condition on Discharge: Stable Activity After Discharge Activity Instructions for Disc: Activity as tolerated Lifting Instructions after Dis: No pulling or pushing, Do not lift >10 pounds Driving Instructions after Dis: Do not drive today Diet after Discharge Diet after Discharge: Cardiac Wound Incision Care Wound/Incision Care: Ice to area for comfort, Do not change dressing Checks after Discharge Checks after discharge: Check blood press - daily Community/Resources/Services Services at Discharge: Home Health Care Services, Outpatient Therapy, PT EVALUATE & TREAT Contacting the DRVandana after DC Call your doctor for: If your condition worsens Follow-Up Follow up with: PCP within 2 weeks of discharge Follow Up With: Orthopedic follow-up for postoperative check DENVER FORD MD Aug 08, 2020 11:59
--- NOTE | 2020-08-08 12:43 | NUR ---
SW following. Discussed with RN, pt from home with girlfriend, room air, regular diet, rapid COVID-19 negative. PT/OT ordered. Discharge order for home with self care. RN advised no SW needs at this time [facility] will continue to follow. Addendum: 08/08/20 at 1503 by [facility] Pt requesting home health. SW met with pt (no isolation precautions at the time) pt agreeable, does not have a preference. Pt agreeable to [facility] RN meeting with him prior to discharge. Loly notified of referral. Discharge home today. Addendum: 08/08/20 at 1552 by [facility] Pt accepted with [facility]. RN notified.
[2020-08-08 15:00] VITALS: BP 110/51
--- NOTE | 2020-08-08 15:34 | SNU/HH DC ---
DISCHARGE WITH HOME HEALTH DISCHARGE INFORMATION: Discharge Date: Aug 08, 2020 Final Diagnosis: Problems Medical Problems: (1) Abrasion of right hand Status: Acute (2) Fall Status: Acute (3) Rupture of right quadriceps tendon Status: Acute Condition on Discharge: Stable CODE STATUS: Code Status: Full HOME HEALTH: Face to Face: I certify this patient is under my care and that I, or a nurse practitioner or physician's teachers' assistant working with me, had a face to face encounter that meets the physician face to face encounter requirements with this patient on []. Medical Complications: Falls, S/P Joint Replacement RN For Eval/Treatment: Yes Physical Therapy For: Evalulation/Treatment Occupational Therapy For: Evaluation/Treatment Home Health Aide For: Self-care Pt Meets Homebound Status: Poor coordination w/ amb., Extreme weakness w/ amb., Fatigue w/ amb., Frequent falls w/ injury, Unable to negotiate home POST DISCHARGE ORDERS: Activity Instructions for Disc: Activity as tolerated Weight Bearing Status after Di: As tolerated DIET AFTER DISCHARGE: Cardiac Wound/Incision Care: Do not change dressing CHECKS AFTER DISCHARGE: Checks after discharge: Check blood press - daily FOLLOW-UP: Follow up with: PCP within 2 weeks of discharge Follow Up With: DR. SHELL August @ 1:30PM TREATMENT/EQUIPMENT ORDERS: Adaptive Equipment Issued: Walker CERTIFICATION STATEMENT: Certification Statement: Certification Statement: Based on the above finding, I certify that this patient is confined to the home and needs intermittent half-way care, physical therapy and/or speech therapy, or continues to need occupational therapy.~ This patient is under my care, and I have initiated the establishment of the plan of care.~ This patient will be followed by myself or a community physician who will periodically review the plan of care. Home Meds Reported Medications Famotidine (FAMOTIDINE) 20 Mg Tablet, 20 MG PO DAILY for reflux, TAB 08/07/20 Glucosamine Hcl/Chondr Moon A Na (CIDAFLEX TABLET) 1 Each Tablet, 1 TAB PO DAILY for joints for 30 Days, #30 TAB 0 Refills 08/07/20 Lisinopril (LISINOPRIL) 40 Mg Tablet, 1 TAB PO DAILY for htn, #30 TAB 5 Refills 08/07/20 Metformin Hcl (METFORMIN HCL) 500 Mg Tablet, 500 MG PO DAILY for ANTI-DIABETIC, TAB 0 Refills 08/07/20 Sulfacetamide Sodium (SULFACETAMIDE SODIUM) 15 Ml Drops, 1 DROP EACHEYE DAILY for prevent bacteria for 7 Days, #15 ML 0 Refills 08/07/20 Aspirin (ASPIRIN) 81 Mg Tab.chew, 1 TAB PO DAILY for heart, #30 TAB 3 Refills 08/07/20 Atorvastatin Calcium (ATORVASTATIN CALCIUM) 10 Mg Tablet, 1 TAB PO DAILY for cholesterol, #30 TAB 5 Refills 08/07/20 DENVER FORD MD Aug 08, 2020 15:34
--- NOTE | 2020-08-08 17:25 | NUR ---
Pt discharged home with home health. Discharge instructions and prescriptions discussed with pt and s/o. questions answered. IV's removed. Assisted pt with dressing. Pt assisted to wheelchair. Belongings were packed by s/o. Pt secured in car.
--- NOTE | 2020-08-09 04:31 | PDOC3 ---
[facility]-Discharge Summary Date of Admission: Date of Admission: Aug 07, 2020 Date of Discharge: Date of Discharge: Aug 08, 2020 Discharge Diagnosis: Discharge Diagnosis: Mechanical fall Right quadriceps tendon rupture Hospital Course: Hospital Course: 74 year old male admit for acute pain to his right knee after a fall. He was walkign his dogs in the neighborhood and slipped on the ice. He has slipped before, but this time, he twisted and had sudden, severe pain. He is retired and lives [place] [address] [place] . His partner for the past 39 years is Jennifer Queen MD. Underwent R quadriceps tendon repair and tolerated the procedure well. Participated 100% with PT/OT and able to use walker postoperative. Rest of hospital course was uneventful. Disposition: Disposition/Orders: D/C to Home Activity: Activity: Resume previous activity Diet: Diet: Regular Medications: Home Meds Reported Medications Famotidine (FAMOTIDINE) 20 Mg Tablet, 20 MG PO DAILY for reflux, TAB 08/07/20 Glucosamine Hcl/Chondr Moon A Na (CIDAFLEX TABLET) 1 Each Tablet, 1 TAB PO DAILY for joints for 30 Days, #30 TAB 0 Refills 08/07/20 Lisinopril (LISINOPRIL) 40 Mg Tablet, 1 TAB PO DAILY for htn, #30 TAB 5 Refills 08/07/20 Metformin Hcl (METFORMIN HCL) 500 Mg Tablet, 500 MG PO DAILY for ANTI-DIABETIC, TAB 0 Refills 08/07/20 Sulfacetamide Sodium (SULFACETAMIDE SODIUM) 15 Ml Drops, 1 DROP EACHEYE DAILY for prevent bacteria for 7 Days, #15 ML 0 Refills 08/07/20 Aspirin (ASPIRIN) 81 Mg Tab.chew, 1 TAB PO DAILY for heart, #30 TAB 3 Refills 08/07/20 Atorvastatin Calcium (ATORVASTATIN CALCIUM) 10 Mg Tablet, 1 TAB PO DAILY for cholesterol, #30 TAB 5 Refills 08/07/20 Scheduled Aspirin (Aspirin), 1 TAB PO DAILY, (Reported) Atorvastatin Calcium (Atorvastatin Calcium), 1 TAB PO DAILY, (Reported) Famotidine (Famotidine), 20 MG PO DAILY, (Reported) Glucosamine Hcl/Chondr Moon A Na (Cidaflex Tablet), 1 TAB PO DAILY, (Reported) Lisinopril (Lisinopril), 1 TAB PO DAILY, (Reported) Metformin Hcl (Metformin Hcl), 500 MG PO DAILY, (Reported) Sulfacetamide Sodium (Sulfacetamide Sodium), 1 DROP EACHEYE DAILY, (Reported) Total Time: Total Time: Total time spent was 32 minutes in preparing scripts, discharge planning with SW and RN, and preparing this discharge summary. Patient seen and examined on day of discharge. Justicifation of Admission Dx: Justifications for Admission: Justification of Admission Dx: Yes Fracture: Fracture DENVER FORD MD Aug 09, 2020 04:31
== END 2020-08-08 17:00 | disposition home health service (06) ==
LOC: ER 09:00 → 5 NORTH 12:40 → 4 NORTH 17:03
PROVIDERS: ADMIT Internal Medicine; ATTEND Internal Medicine
DX: S76.111A Strain of right quadriceps muscle, fascia and tendon, initial encounter (principal); Z20.822 Contact with and (suspected) exposure to COVID-19; S60.511A Abrasion of right hand, initial encounter; I10 Essential (primary) hypertension; E11.9 Type 2 diabetes mellitus without complications; E78.5 Hyperlipidemia, unspecified; M54.5 Low back pain; Z79.82 Long term (current) use of aspirin; Z79.84 Long term (current) use of oral hypoglycemic drugs; Z98.890 Other specified postprocedural states; Z23 Encounter for immunization; W00.2XXA Other fall from one level to another due to ice and snow, initial encounter; Y93.K1 Activity, walking an animal; Y92.488 Other paved roadways as the place of occurrence of the external cause; Y99.8 Other external cause status
CPT/HCPCS: 27385; 36415; 73562; 73700; 80048; 80053; 85025; 87426; 90471; 90715; 93005; 96361; 96372; 96374; 97110; 97116; 97162; 97165; 97530; 99285; G0378; J0360; J0690; J1100; J1170; J1650; J2270; J2405; J2704; J3010; J7030; U0003; G0379

== ENCOUNTER 2020-11-30 06:28 | Day surgery (SDC) | payer MEDICARE ==
[~2020-11-30] VITALS: Ht 190.5 cm; Wt 99.0 kg
[~2020-11-30 06:28] MED LIST: ASPI-630 PO; ATOR10TA60 PO; FAMO20TA5 PO; GLUC-11 PO; HYDROmorphone 2 MG/ML VIAL IVP PRN; INSULIN LISPRO 100 UNIT/ML 3ML VIAL for OP,RR ONLY. SQ PRN; IV RINGERS,LACTATED 1000ML 1,000 ML IV SCH; LISI-130 PO; METF500T16 PO; MORPHINE SULFATE 2 MG/ML VIAL. IVP PRN; NAPR500T8 PO; PROCHLORPERAZINE 10 MG/2 ML VIAL. IVP PRN; SULF15DR5 EACHEYE; TRIA10.8 NS; fentaNYL PF VIAL 100 MCG/2 ML VIAL IVP PRN
[2020-11-30 06:50] VITALS: BP 136/64
[2020-11-30] MEDS ORDERED: BUPIVACAINE-EPI 0.25% 30 ML VIAL KIT. ONE (06:55)
[2020-11-30] MEDS ORDERED: MINERAL OIL for SURGERY 10 ML VIAL. MC ONE (06:55)
[2020-11-30] MEDS ORDERED: ONDANSETRON PF 4 MG/2 ML VIAL. ONE (07:02)
[2020-11-30] MEDS ORDERED: PROPOFOL 10 MG/ML (20ML) VIAL. IV ONE (07:02)
[2020-11-30] MEDS ORDERED: ROCURONIUM 50 MG/5 ML VIAL. ONE (07:02)
[2020-11-30] MEDS ORDERED: DEXAMETHASONE SOD PHOS 4 MG/ML VIAL ONE (07:02)
[2020-11-30] MEDS ORDERED: LIDOCAINE 2% PF 5 ML VIAL. ONE (07:02)
[2020-11-30] MEDS ORDERED: NEOSTIGMINE METHYLSULFATE 5 MG/5 ML SYRINGE. ONE (07:04)
[2020-11-30] MEDS ORDERED: GLYCOPYRROLATE 1 MG/5 ML VIAL. ONE (07:05)
[2020-11-30] MEDS ORDERED: fentaNYL PF VIAL 100 MCG/2 ML VIAL ONE (07:41)
[2020-11-30] MEDS ORDERED: ACETAMINOPHEN 500 MG TABLET PO PRN (08:00)
[2020-11-30] MEDS ORDERED: SEVOFLURANE 61 TO 120 MINUTES. IH ONE (08:41)
[2020-11-30] MEDS ORDERED: PHENYLEPHRINE in 0.9% NACL PF 1 MG/10 ML SYRINGE. IV ONE (09:08)
--- NOTE | 2020-11-30 09:09 | PDOC4 ---
Operative Note Operative Note Date: November 30, 2020 at 906 Preoperative diagnosis: Recurrent right inguinal hernia Postoperative diagnosis: Same Procedure: Robotic assisted laparoscopic right inguinal hernia repair with mesh Surgeon: Gonzalo Specimen: None Dictation: Patient is 75-year-old gentleman who had a right inguinal hernia repaired little over a year ago now has the same kind of pain and a bulge in his right groin consistent with a recurrent inguinal hernia. Procedure of robotic assisted laparoscopic right inguinal hernia repair with mesh was explained to the patient detail risk benefits were also discussed including bleeding infection injury to intra-abdominal contents possible necessitating further open operations alternatives to this procedure also discussed with patient who seemed to understand and gave both verbal and written consent to have the procedure performed. Patient was taken to the operating room placed in the supine position general anesthesia was initiated once patient was sleeping intubated his abdomen was prepped and draped usual sterile fashion using ChloraPrep. He was then positioned in the low lithotomy positioning area just above the umbilicus was injected with quarter percent Marcaine with epinephrine incision was made 11 blade scalpel and a varies needle was placed within the abdomen creating pneumoperitoneum once this complete a millimeter da Hermilo port was placed in the da Hermilo camera was placed within the abdomen which was inspected was noted that there was some incarcerated small bowel within the hernia defect on the right side. 8 mm port was placed in the right midabdomen and an 8 mm port was placed in the left midabdomen the da Hermilo robot is brought and docked all port sites surgeon went to the robotic console using a grasper and Endo Yareli scissors the small bowel was reduced from the hernia defect the peritoneum was incised with electrocautery and a window was propagated inferiorly with the peritoneum reducing the hernia sac. A large Bard 3D max mesh was then placed over the hernia defect this was sewn in place with a 2-0 single interrupted Vicryl suture along the superior border. Peritoneum was then closed with running 2 OV lock absorbable suture. Once this was complete the sutures were removed the da Hermilo robot was undocked from all port sites and removed from the operative field the ports were all removed the pneumoperitoneum was reduced port sites were all closed for subcuticular Monocryl Mastisol Steri- Strips and island dressings were applied. Patient was awakened and extubated in the operating room taken to recovery in stable condition all sponge instrument needle counts listed as correct estimated blood loss 5 mL CORI SAGE MD Nov 30, 2020 09:09
--- NOTE | 2020-11-30 09:12 | DISCH ---
DISCHARGE INSTRUCTIONS Condition on Discharge Condition on Discharge: Stable Activity After Discharge Activity Instructions for Disc: Avoid exertion Other activity instructions: No lifting more than 20 pounds for 2 weeks Diet after Discharge Diet after Discharge: Regular Wound Incision Care Other wound/incision instructi: May shower in 24 hours Contacting the DRVandana after DC Call your doctor for: If your condition worsens Follow-Up Follow up with: Dr. Sánchez in 2 weeks Treatment/Equipment after DC Adaptive Equipment Issued: CORI Tineo MD Nov 30, 2020 09:12
[2020-11-30] MEDS ORDERED: OXYC1TAB15 PO (09:24)
[2020-11-30] MEDS ORDERED: oxyCODONE/APAP 5/325 1 TAB TABLET ONE (09:36)
[2020-11-30] MEDS ORDERED: oxyCODONE/APAP 5/325 1 TAB TABLET PO ONE (09:45)
[2020-11-30 10:00] VITALS: BP 152/69
== END 2020-11-30 10:41 | disposition home or self-care (01) ==
LOC: SURG 06:28
PROVIDERS: ATTEND Surgery
DX: K40.91 Unilateral inguinal hernia, without obstruction or gangrene, recurrent (principal); I10 Essential (primary) hypertension; E78.00 Pure hypercholesterolemia, unspecified; K21.9 Gastro-esophageal reflux disease without esophagitis; M19.90 Unspecified osteoarthritis, unspecified site; E11.9 Type 2 diabetes mellitus without complications; Z79.84 Long term (current) use of oral hypoglycemic drugs; Z79.899 Other long term (current) drug therapy; Z98.890 Other specified postprocedural states; Z72.89 Other problems related to lifestyle
CPT/HCPCS: 49651; 82962; A4364; A4930; A6219; C1781; J0690; J1100; J2370; J2405; J2704; J2710; J3010; J3490; A4657